=== PATIENT | female | born 1970 | race Caucasian/White ===

== ENCOUNTER → 2016-11-29 | Outpatient (CLI) | payer OTHER | LOC: RAD 13:26 | PROVIDERS: ATTEND Internal Medicine | DX: Z12.31 Encounter for screening mammogram for malignant neoplasm of breast (principal) | CPT/HCPCS: 77067 ==

== ENCOUNTER → 2017-12-03 | Outpatient (CLI) | payer OTHER ==
--- NOTE | 2017-12-04 14:27 | Diagnostic Imaging Report ---
INDICATION: Digital mammogram bilateral screening with 3-D tomosynthesis. This study was compared to the prior exams of 11/29/16, 11/02/15 and 08/26/12. At this time, there are no current complaints. The current study was also evaluated with a Computer Aided Detection (CAD) system. FINDINGS: The fibroglandular tissue in both breasts is dense. This does limit the sensitivity of this exam. Overall, there does not appear to have been any significant change when compared to the prior study. No primary or secondary sign of malignancy is noted. 3D tomographic images fail to show any sign of malignancy. IMPRESSION: There is no radiographic evidence for malignancy. ACR BI-RADS Category 1: Negative. Result letter will be mailed to the patient. Note: At least 10% of breast cancer is not imaged by mammography. Dictated by: Dictated on workstation # [id number]
== END ==
LOC: RAD 07:48
PROVIDERS: ATTEND Internal Medicine
DX: Z12.31 Encounter for screening mammogram for malignant neoplasm of breast (principal)
CPT/HCPCS: 77067

== ENCOUNTER → 2019-07-06 | Outpatient (CLI) | payer BC, OTHER ==
--- NOTE | 2019-07-06 17:53 | Diagnostic Imaging Report ---
INDICATION: Routine screening. COMPARISON: Comparison is made with prior mammograms from 12/03/2017 and 11/29/2016. TECHNIQUE: 2-D and 3-D bilateral screening mammography was performed. The current study was also evaluated with a Computer Aided Detection (CAD) system. 3-D tomosynthesis was also performed and reviewed. FINDINGS: Both breasts are heterogeneously dense, limiting the sensitivity of mammography. There is a circumscribed density in the upper and outer aspect of the right breast posterior depth, approximately 10 cm from the nipple. This has increased in size since the prior exam and may represent an enlarging cyst. Ultrasound is recommended. Left breast is unremarkable. No malignant-appearing microcalcifications are seen. Axillae are unremarkable. IMPRESSION: Enlarging circumscribed density in the upper-outer right breast posterior depth, approximately 10 cm from the nipple, likely an enlarging cyst. Further evaluation of this area with ultrasound is recommended. ACR BI-RADS Category 0: Incomplete. (Needs additional imaging evaluation). Result letter will be mailed to the patient. Note: At least 10% of breast cancer is not imaged by mammography. Dictated by: Dictated on workstation # [id number]
== END ==
LOC: RAD 14:21
PROVIDERS: ATTEND Internal Medicine
DX: Z12.31 Encounter for screening mammogram for malignant neoplasm of breast (principal); N63.11 Unspecified lump in the right breast, upper outer quadrant
CPT/HCPCS: 77067

== ENCOUNTER → 2019-07-13 | Outpatient (CLI) | payer BC ==
--- NOTE | 2019-07-14 07:34 | Diagnostic Imaging Report ---
EXAMINATION: Ultrasound of the right breast limited. INDICATION: Abnormal mammogram. PERSONAL HISTORY: The screening mammogram performed on 07/06/2019 suggested an enlarging circumscribed density in the upper outer aspect of the right breast approximately 10 cm from the nipple. This is felt to represent a cyst. On this exam, there is indeed a 1.3 x 0.7 x 1.6 cm benign-appearing cyst in the 10 o'clock position of the right breast roughly 10 cm from the nipple. This finding has the appearance of a simple cyst and I do suspect it corresponds to the finding on the mammogram. There are no solid masses to suggest malignancy. IMPRESSION: 1. The enlarging circumscribed density in the right breast seen on the recent mammogram is felt to represent a simple cyst. There is no evidence of malignancy. 2. The patient should have her annual bilateral screening mammogram on schedule in June 2020. ACR BI-RADS Category 2: Benign findings. Result letter will be mailed to the patient. Note: At least 10% of breast cancer is not imaged by mammography. Dictated by: Dictated on workstation # [id number]
== END ==
LOC: RAD 12:58
PROVIDERS: ATTEND Internal Medicine
DX: R92.2 Inconclusive mammogram (principal)

== ENCOUNTER → 2020-10-26 | Outpatient (CLI) | payer OTHER ==
--- NOTE | 2020-10-26 14:03 | Diagnostic Imaging Report ---
INDICATION: Routine screening. COMPARISON is made with prior mammograms 07/06/2019, 12/03/2017. 2-D and 3-D bilateral screening mammography was performed with CAD. Both breasts are heterogeneously dense, limiting the sensitivity of mammography. The parenchymal pattern is stable. No dominant mass or malignant appearing microcalcifications are seen. There are benign calcifications present. Axillae are unremarkable. IMPRESSION: BI-RADS Category 2 No mammographic features suspicious for malignancy are identified ACR BI-RADS Category 2: Benign findings. Result letter will be mailed to the patient. Note: At least 10% of breast cancer is not imaged by mammography. Dictated by: Dictated on workstation # [id number]
== END ==
LOC: RAD 10:31
PROVIDERS: ATTEND Nurse Practitioner Family
DX: Z12.31 Encounter for screening mammogram for malignant neoplasm of breast (principal)
CPT/HCPCS: 77063; 77067

== ENCOUNTER 2020-11-23 08:43 | Outpatient (CLI) | payer OTHER ==
[~2020-11-23] VITALS: Ht 157.5 cm; Wt 71.7 kg
[2020-11-24] MEDS ORDERED: LISI10TA25 PO (14:21)
[2020-11-24] MEDS ORDERED: ATOR80TA76 PO (14:21)
[2020-11-24] MEDS ORDERED: OMEG-154 PO (14:21)
== END 2020-11-24 14:45 | disposition home or self-care (01) ==
LOC: PREOP 08:43
PROVIDERS: ATTEND Internal Medicine
DX: Z01.818 Encounter for other preprocedural examination (principal)

== ENCOUNTER 2020-12-01 08:00 | Day surgery (SDC) | payer OTHER ==
--- NOTE | 2020-11-23 06:08 | HISTORY AND PHYSICAL ---
DATE OF SERVICE: COLONOSCOPY HISTORY AND PHYSICAL HISTORY OF PRESENT ILLNESS: The patient is a 50-year-old white female seen for follow up on 11/15/2020 with a history of type IIb hyperlipidemia. She had not previously accomplished screening colonoscopy, so this is being set up. She is deemed to be of average risk as she is not aware of any family history for colon cancer. There is, however, a family history for vascular disease in her father who had a history of coronary artery bypass grafting and he had stroke at the age of 75, at the age of 77. Mother of breast cancer at the age of 81. Brother and sister in their 50s with no history of vascular disease. She has a history of hypertension. PHYSICAL EXAMINATION: GENERAL: Reveals a white female appeared to be in no acute distress. VITAL SIGNS: Blood pressure 120/82. CHEST: Clear. CARDIOVASCULAR: Regular rate and rhythm without murmur, S3 or S4. EXTREMITIES: Reveal no cyanosis, clubbing or edema. LABORATORY DATA: Blood tests were reviewed with the patient. Her cholesterol was high at 266 with an HDL of 58 and a triglyceride level of 412 such that her LDL could not be calculated. ASSESSMENT AND PLAN: 1. The patient was set up for screening colonoscopy. Prep instructions were given with the Suprep kit and questions answered. 2. Hyperlipidemia IIb with hypertension in addition to dietary issues which were discussed. Recommended medication. We will initiate atorvastatin 80 mg daily with followup in 2 months and a lipid panel prior. Job ID: [id number] DocumentID: [id number] Dictated Date: 11/16/2020 13:11:16 Operator Prefinish Date: 11/16/2020 13:25:06 Dictated By: MARIELA PUTNAM MD
[~2020-12-01] VITALS: Ht 157.5 cm; Wt 71.7 kg
[~2020-12-01 08:00] MED LIST: ATOR80TA76 PO; LISI10TA25 PO; OMEG-154 PO
[2020-12-01] MEDS ORDERED: GLYCOPYRROLATE 0.2 MG/ML (ROBINUL) 2 ML VIAL IJ ONE (08:01)
[2020-12-01] MEDS ORDERED: LACTATED RINGERS 1,000 ML IV STA (08:02)
[2020-12-01] MEDS ORDERED: LIDOCAINE JELLY 2% 6 ML SYRINGE MM PRN (08:15)
[2020-12-01 08:24] VITALS: BP 145/87
--- NOTE | 2020-12-01 08:44 | Pre-Op Note & Conscious Sedat ---
Pre-Operative Progress Note H&P Reviewed The H&P was reviewed, patient examined and no changes noted. Date H&P Reviewed: Dec 01, 2020 Time H&P Reviewed: 08:44 Conscious Sedation Pre-Proced ASA Score 2 For ASA 3 and 4: Consider anesthesia and medical clearance. Also, for patients with a history of failed moderate sedation consider anesthesia. Airway Lungs Heart ASA score ASA 1: a normal healthy patient ASA 2: a patient with a mild systemic disease (mid diabetes, controlled hypertension, obesity ASA 3: a patient with a severe systemic disease that limits activity (angina, COPD, prior Myocardial infarction) ASA 4: a patient with an incapacitating disease that is a constant threat to life (CHF, renal failure) ASA 5: a moribund patient not expected to survive 24 hrs. (ruptured aneurysm) ASA 6: a declared brain- patient whose organs are being harvested. For emergent operations, add the letter E after the classification Mallampati Classification Grade 2 Sedation Plan Analgesia, Amnesia, Plan communicated to team members, Discussed options with patient/fam, Discussed risks with patient/fam The patient is an appropriate candidate to undergo the planned procedure, sedation, and anesthesia. The patient immediately re-assessed prior to indication. MARIELA PUTNAM MD Dec 01, 2020 08:44
[2020-12-01] MEDS ORDERED: MIDAZOLAM 2 MG/2 ML (VERSED) VIAL ONE (09:04)
[2020-12-01] MEDS ORDERED: proPOfol 200 MG/20 ML (DIPRIVAN) VIAL IV ONE ×2 (09:04→09:52)
[2020-12-01 09:55] VITALS: BP 94/57
[2020-12-01 10:00] VITALS: BP 90/56
[2020-12-01 10:05] VITALS: BP_SYST 100; BP_SYST 93; BP_DIAS 60; BP_DIAS 68
[2020-12-01 10:30] VITALS: BP 116/84
[2020-12-01 10:40] VITALS: BP 116/84
--- NOTE | 2020-12-01 16:22 | OPERATIVE REPORT ---
DATE OF SERVICE: COLONOSCOPY SUMMARY INDICATION FOR THE PROCEDURE: Screening colonoscopy. DESCRIPTION OF PROCEDURE: The patient was placed in the left lateral decubitus position. Prior to undergoing colonoscopy, digital rectal evaluation was performed. Anal sphincter tone was normal and the perianal reflexes intact. No abnormalities were noted on digital inspection of anal canal or distal rectal vault. The colonoscope was then inserted into the rectum and under direct visualization advanced to cecum. The cecum was identified by identification of ileocecal valve and cecal strap. Photographic documentation was obtained. Careful inspection was made as colonoscope was withdrawn. Quality of the prep was good. FINDINGS: There was no evidence for internal or external hemorrhoids and the rectum, sigmoid colon, descending colon, splenic flexure, transverse colon and hepatic flexure were unremarkable. Present in the distal ascending colon was a questionable diminutive sessile polyp. It was biopsied and ablated after photography with no blood loss. The remainder of the ascending colon and cecum were unremarkable. ASSESSMENT: Questionable distal ascending colonic polyp was biopsied and ablated. If this is not in the adenoma family and there is no dysplasia, we would just advocate consideration for repeat screening colonoscopy in 10 years. No other abnormalities noted on today's procedure under good prep conditions. Job ID: [id number] DocumentID: [id number] Dictated Date: 12/01/2020 11:05:56 Room Service [place] Date: 12/01/2020 16:21:22 Dictated By: MARIELA PUTNAM MD
== END 2020-12-01 10:40 | disposition home or self-care (01) ==
LOC: ENDO 08:00
PROVIDERS: ATTEND Internal Medicine
DX: Z12.11 Encounter for screening for malignant neoplasm of colon (principal); K63.5 Polyp of colon; I10 Essential (primary) hypertension; E78.5 Hyperlipidemia, unspecified; Z79.899 Other long term (current) drug therapy; Z82.3 Family history of stroke; Z80.3 Family history of malignant neoplasm of breast
CPT/HCPCS: 84703; 88305

== ENCOUNTER → 2022-12-20 | Outpatient (CLI) | payer BC, OTHER ==
--- NOTE | 2022-12-20 13:07 | Diagnostic Imaging Report ---
Indication: Routine screening. Comparison is made with prior mammograms 10/26/2020 and 07/06/2019. 2-D and 3-D bilateral screening mammography was performed with CAD. Both breasts are heterogeneously dense, limiting the sensitivity of mammography. The parenchymal pattern appears to be stable. No mass or malignant-appearing microcalcifications are seen. There are benign calcifications in both breasts. The axillae are unremarkable. IMPRESSION: BI-RADS Category 2 No mammographic features suspicious for malignancy are identified. ACR BI-RADS Category 2: Benign findings. Result letter will be mailed to the patient. Note: At least 10% of breast cancer is not imaged by mammography. Dictated by: Dictated on workstation # [id number]
== END ==
LOC: RAD 10:37
PROVIDERS: ATTEND Nurse Practitioner Family
DX: Z12.31 Encounter for screening mammogram for malignant neoplasm of breast (principal)
CPT/HCPCS: 77063; 77067